=== PATIENT | female | born 1980 | race Caucasian/White ===

== ENCOUNTER 2019-12-21 08:48 | Inpatient (IN) | payer MEDICAID ==
[2019-12-21] VITALS (7 sets, daily range): BP systolic 162–216; BP diastolic 87–111; BMI 20.7
[~2019-12-21] VITALS: Ht 175.3 cm; Wt 55.8 kg
--- NOTE | 2019-12-21 09:10 | NUR ---
FSBS 265 AT THIS TIME.
[2019-12-21 09:29] LABS: ANION GAP 12.9 mmol/L (8-16); BASOPHILS 0.4 % (0-2); CALCIUM 8.9 mg/dL (8.5-10.1); CARBON DIOXIDE 27.6 mmol/L (21.0-32.0); CREATININE - SERUM 3.2 mg/dL (0.6-1.3); EOSINOPHILS 4.1 % (0-7); HEMATOCRIT 34.9 % (36.0-48.0); HEMOGLOBIN 10.9 g/dL (12-16); IMMATURE GRANULOCYTES 0.5 % (0-5); LYMPHOCYTES 8.3 % (15-50); MCH 27.2 pg (26.0-34.0); MCHC 31.2 g/dL (31.0-37.0); MEAN PLATELET VOLUME 10.4 fL (7.4-10.4); MONOCYTES 8.2 % (2-11); NEUTROPHILS 78.5 % (40-80); PLATELET COUNT 271 10x3/uL (130-400); POTASSIUM - SERUM 3.5 mmol/L (3.5-5.1); RBC 4.01 10x6/uL (4.00-5.40); RDW 15.1 % (11.5-14.5)
[2019-12-21 09:36] LABS: ALBUMIN 3.5 g/dL (3.4-5.0); BILIRUBIN - TOTAL 0.39 mg/dL (0.2-1.3); PROTEIN - SERUM 6.7 g/dL (6.4-8.2)
--- NOTE | 2019-12-21 11:43 | NUR ---
BLOOD SUGAR OBTAINED 269 MG/DL.
[2019-12-21] MEDS ORDERED: BACLOFEN10 MG PO (14:55)
[2019-12-21] MEDS ORDERED: SYNTHROID25 MCG PO (14:56)
[2019-12-21] MEDS ORDERED: METOPROLOL TARTRATE PO (14:59)
[2019-12-21] MEDS ORDERED: CATAPRES0.1 MG PO (15:00)
[2019-12-21] MEDS ORDERED: LISINOPRIL40 MG PO (15:01)
[2019-12-21] MEDS ORDERED: LANTUS INS100 UNITS/ SC (15:04)
[2019-12-21] MEDS ORDERED: HUMALOG 30100 UNITS/ SC (15:05)
[2019-12-21] MEDS ORDERED: ACETAMINOPHEN500 M1 PO (15:46)
[2019-12-21] MEDS ORDERED: HYDROCODON-ACE1 EA10 PO (15:47)
--- NOTE | 2019-12-21 16:04 | NUR ---
PT C/O OF PAIN IN HER LEFT ARM AV FISTULA. PT TAKES NORCO 10 Q6HP TOME. CALLED AND SPOKE WITH TRINH HALL AND SHE STATES TO RESTART NORCO. I VERBALIZED UNDERSTANDING.
--- NOTE | 2019-12-21 18:20 | NUR ---
PT C/O DIZZINESS. RECHECKED FSBS 214 COVERED WITH 4 UNITS. BP 192/95. CALLED AND SPOKE WITH TRINH HALL AND SHE STATES TO ORDER CLONIDINE 0.1MG Q6HP SBP >160. I VEBRALIZED UNDERSTANDING.
--- NOTE | 2019-12-21 18:40 | NUR ---
PRN CLONIDINE GIVEN AND RIGHT CHEST HEMOSPLIT DRESSING CHANGED USING STERILE TECHNIQUE.
--- NOTE | 2019-12-21 19:10 | NUR ---
PT SLEEPING. SHE AROUSES WITH VERBAL STIMULI, MUMBLES AND THEN FALLS BACK TO SLEEP. HER MOTHER IS AT HER BEDSIDE. SHE WROTE A LIST OF QUESTIONS FOR THE DOCTOR AND LEFT THEM ON THE PTS BEDSIDE TABLE. BED IS LOW AND CALL LIGHT IS WITHIN REACH.
[2019-12-22 00:32] VITALS: BP 149/84
[2019-12-22 04:09] LABS: BASOPHILS 0.8 % (0-2); EOSINOPHILS 5.3 % (0-7); HEMATOCRIT 33.5 % (36.0-48.0); HEMOGLOBIN 10.1 g/dL (12-16); IMMATURE GRANULOCYTES 0.5 % (0-5); LYMPHOCYTES 12.5 % (15-50); MCH 26.7 pg (26.0-34.0); MCHC 30.1 g/dL (31.0-37.0); MCV 88.6 fL (80.0-100.0); MEAN PLATELET VOLUME 9.9 fL (7.4-10.4); MONOCYTES 7.6 % (2-11); NEUTROPHILS 73.3 % (40-80); PLATELET COUNT 290 10x3/uL (130-400); RBC 3.78 10x6/uL (4.00-5.40); RDW 15.4 % (11.5-14.5); WBC 8.8 10x3/uL (4.8-10.8)
[2019-12-22 04:51] VITALS: BP 150/85
[2019-12-22 04:52] LABS: ALBUMIN 3.1 g/dL (3.4-5.0); ANION GAP 14.1 mmol/L (8-16); BILIRUBIN - TOTAL 0.39 mg/dL (0.2-1.3); CALCIUM 8.6 mg/dL (8.5-10.1); CARBON DIOXIDE 24.4 mmol/L (21.0-32.0); CREATININE - SERUM 3.8 mg/dL (0.6-1.3); POTASSIUM - SERUM 3.5 mmol/L (3.5-5.1); PROTEIN - SERUM 6.5 g/dL (6.4-8.2)
[2019-12-22 09:00] VITALS: BP 160/91
[2019-12-22 11:00] VITALS: BP 145/85
--- NOTE | 2019-12-22 12:34 | NUR ---
SITTING UP SOB EATING LUNCH. RIGHT CHEST HEMASPLI INTACT. LEFT ARM AVF NOTED. ERIKA NEEDS AT THIS TIME. CALL LIGHT IN REACH.
[2019-12-22 12:52] VITALS: Ht 175.3 cm; Wt 55.8 kg
[2019-12-22] MEDS ORDERED: PROCARDIA XL PO (14:51)
[2019-12-22] MEDS ORDERED: CYCLOBENZAPRINE5 MG PO (14:53)
[2019-12-22] MEDS ORDERED: KEFLEX250 MG PO (14:58)
[2019-12-22 15:00] VITALS: BP 144/75
--- NOTE | 2019-12-22 15:26 | NUR ---
RX FOR PROCARDIA 30 MG XL DID NOT E SCRIBE[facility]
--- NOTE | 2019-12-22 15:31 | NUR ---
DR. WATTS STATES TO ME THAT PT WILL NOT NEED F/U WITH PCP SHE WILL JUST F/U WITH MD IN DIALYSIS. I VERBALIZED UNDERSTANDING.
--- NOTE | 2019-12-22 16:45 | NUR ---
PT STATES TO ME SHE WANTS HER INSULIN IN HER RIGHT ARM TO GIVE HER LEFT ARM A BREAK. PT IS A LEFT ARM RESERVE. TEACHING DONE WITH PT ON WHAT A LEFT ARM RESERVE MEANS AND SHE IS NOT TO STICK, PUT INSULIN, CHECK BLOOD PRESSURES AT ALL IN THAT ARM. PT VERBALIZED UNDERSTANDING.
--- NOTE | 2019-12-22 17:05 | NUR ---
PT TAKEN TO DIALYSIS. PT TO D/C AFTER.
--- NOTE | 2019-12-22 17:40 | MORECARE ---
CASE MANAGEMENT DISCHARGE SUMMARY PATIENT: CHIARA SYLVESTER UNIT: [id number] ADM DATE: 12/21/19 AGE: 39 : 82 SEX: F ROOM/BED: D.1405 AUTHOR: RENETTA KAN PHYSICIAN: REFERRING PHYSICIAN: DENI WATTS DO DATE OF SERVICE: 12/22/19 Discharge Plan Patient Name: CHIARA SYLVESTER Facility: [facility]:[place] : 1980 Planned Disposition: Anticipated Discharge Date: Discharge Date: Expected LOS: Initial Reviewer: [email or web address] Initial Review Date: 12/21/2019 Generated: 12/22/19 6:39 pm Patient Name: CHIARA SYLVESTER Page [id number] at 1740 All edits/amendments must be made on the electronic document DICTATION DATE: 12/22/191738 CEPHALOMETRIC TRACER: GIAN 12/22/191738 RPT#: [id number] DC DATE: STATUS: ADM IN [facility] [address] [place] [address] END OF REPORT
--- NOTE | 2019-12-22 20:01 | NUR ---
COMPLETED DIALYSIS. IV D/C'D. OVERVIEWED DISCHARGE INSTRUCTIONWITH PT AND TOLD HER TO NEVER LET ANYONE TUCH HER ARM WITH FISTULA IN IT. ALSO, EDUCATED HER MOTHER. HAD ALL PERSONAL POSITIONS BAGGED AND TAKEN TO ER TO MEET HER MOTHER. HAD NO QUESTIONS CONCERNING DISCHARGE INSTRUCTIONS. LEFT IN FAMILY CAR.
--- NOTE | 2019-12-23 09:34 | MORECARE ---
CASE MANAGEMENT DISCHARGE SUMMARY PATIENT: CHIARA SYLVESTER UNIT: [id number] ADM DATE: 12/21/19 AGE: 39 : 82 SEX: F ROOM/BED: D.0702 AUTHOR: RENETTA KAN PHYSICIAN: REFERRING PHYSICIAN: DENI WATTS DO DATE OF SERVICE: 12/23/19 Discharge Plan Patient Name: CHIARA SYLVESTER [facility] [facility] 1980 Planned Disposition: Anticipated Discharge Date: Discharge Date: 12/22/2019 Expected LOS: Initial Reviewer: [email or web address] Initial Review Date: 12/21/2019 Generated: 12/23/19 10:33 am Last DP export: 12/22/19 4:40 p Patient Name: CHIARA SYLVESTER Page [id number] at 0934 All edits/amendments must be made on the electronic document DICTATION DATE: 12/23/19933 CLOTH SECONDS SORTER: GIAN 12/23/19933 RPT#: [id number] DC DATE:12/22/19 STATUS: DIS IN [facility] [address] [place] [address] END OF REPORT
== END 2019-12-22 20:04 | disposition home or self-care (01) | DRG 304 ==
LOC: D.ER 08:48 → D.EDHOLD 10:31 → D.M2 10:31
PROVIDERS: Family Medicine; ADMIT Internal Medicine; ATTEND Internal Medicine
PROC: 5A1D70Z Performance of Urinary Filtration, Intermittent, Less than 6 Hours Per Day (ICD-10-PCS; principal; 2019-12-21)
DX: I16.0 Hypertensive urgency (principal); N18.6 End stage renal disease; G93.41 Metabolic encephalopathy; E10.22 Type 1 diabetes mellitus with diabetic chronic kidney disease; I12.0 Hypertensive chronic kidney disease with stage 5 chronic kidney disease or end stage renal disease; E10.65 Type 1 diabetes mellitus with hyperglycemia

== ENCOUNTER 2020-06-17 07:00 | Day surgery (SDC) | payer MEDICAID ==
[~2020-06-17] VITALS: Ht 172.7 cm; Wt 59.0 kg
[~2020-06-17 07:00] MED LIST: ACETAMINOPHEN500 M1 PO; BACLOFEN10 MG PO; CATAPRES0.1 MG PO; CYANOCOBAL1000 MCG/4 SC; CYCLOBENZAPRINE5 MG PO; FUROSEMIDE40 MG PO; GABAPENTIN100 MG PO; HUMALOG 30100 UNITS/ SC; HYDRALAZINE HCL50 MG PO; HYDROCODON-ACE1 EA10 PO; KEFLEX250 MG PO; LANTUS INS100 UNITS/ SC; LISINOPRIL40 MG PO; METOPROLOL TARTRATE PO; PHENERGAN25 M1 PO; PROCARDIA XL PO; REGLAN10 MG PO; SYNTHROID25 MCG PO
[2020-06-17 07:51] VITALS: Ht 172.7 cm; Wt 59.0 kg
[2020-06-17 08:09] LABS: HCG URINE NEGATIVE (NEGATIVE)
[2020-06-17] MEDS ORDERED: BAYER CHEWABLE81 MG PO (08:10)
[2020-06-17] MEDS ORDERED: [UNRECOGNIZED DRUG - OTHER] (08:11)
[2020-06-17] MEDS ORDERED: INTEGRA CAPSUL1 EACH PO (08:11)
[2020-06-17] MEDS ORDERED: VITAMIN B-121000 MCG PO (08:12)
[2020-06-17 08:26] LABS: BASOPHILS 0.4 % (0-2); EOSINOPHILS 2.8 % (0-7); HEMATOCRIT 31.3 % (36.0-48.0); HEMOGLOBIN 9.9 g/dL (12-16); LYMPHOCYTE ABS# 0.84 10x3/uL (1.18-3.74); LYMPHOCYTES 9.1 % (15-50); MCH 28.2 pg (26.0-34.0); MCHC 31.6 g/dL (31.0-37.0); MCV 89.2 fL (80.0-100.0); MEAN PLATELET VOLUME 10.6 fL (7.4-10.4); MONOCYTES 8.7 % (2-11); NEUTROPHIL ABS# 7.22 10x3/uL (1.56-6.13); RBC 3.51 10x6/uL (4.00-5.40); RDW 16.4 % (11.5-14.5); WBC 9.3 10x3/uL (4.8-10.8)
[2020-06-17 08:28] LABS: PLATELET COUNT 377 10x3/uL (130-400)
[2020-06-17 08:31] LABS: ANION GAP 18.1 mmol/L (8-16); CALCIUM 8.9 mg/dL (8.5-10.1); CARBON DIOXIDE 26.1 mmol/L (21.0-32.0); CREATININE - SERUM 4.6 mg/dL (0.6-1.3); POTASSIUM - SERUM 4.2 mmol/L (3.5-5.1)
--- NOTE | 2020-06-17 15:07 | NUR ---
DISCHARGE INSTRUCTIONS REVIEWED WITH PATIENT, RIGHT WRIST PIV DC'D WITH TIP INTACT, PATIENT DRESSING IN PERSONAL CLOTHING. DISCHARGED HOME VIA WHEELCHAIR TO PRIVATE VEHICLE WITH MOTHER
--- NOTE | 2020-08-12 16:10 | OP ---
PATIENT NAME: CHIARA SYLVESTER MEDICAL RECORD: [id number] :82 LOCATION:D.OPS ADMISSION DATE: SURGEON: CHRIS RIDLEY MD DATE OF OPERATION: 06/17/2020 PREOPERATIVE DIAGNOSIS: Occluded right innominate vein. POSTOPERATIVE DIAGNOSIS: Occluded right innominate vein with inability to recanalize the right innominate vein. PROCEDURE: 1. Antegrade sheath placement left upper extremity arteriovenous fistula. 2. Nonselective fistulogram. 3. Selective inferior venacavogram. 4. Immediate surgeon interpretation of the fluoroscopic images. SURGEON: Dr. Ridley [employer]OP[employer] BUSINESS ANALYST: None. BLOOD LOSS: Minimal. ANESTHESIA: General. COMPLICATIONS: None. No radiologist was present. Static and cine images were obtained. These were placed in the PACS system. The surgeon interpretation of the radiographic images is dictated within the body of this operative note. OPERATIVE COURSE: The patient was conveyed to the operating room electively on 06/17/2020. General anesthesia was induced by the anesthesia staff. The left upper extremity was abducted at 90 degrees to the patient's trunk. Utilizing a micropuncture technique, I accessed the fistula. I changed the micropuncture catheter out for a 6-Malian sheath. Through the sheath, a fistulogram was performed. 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 An 0.035 Glidewire was advanced. Over 0.035 Glidewire, a number of different catheters including a VU catheter, angled diagnostic catheter and Quick-Cross catheters were utilized in order to try to traverse the occluded right innominate vein. A number of wires were used as well including a Lucas Glidewire and a Glidewire Advantage. Ultimately, I was unable to recanalize the right innominate vein. I would not recommend that we try to recanalize in the future. I felt that if I persisted, it could lead to an iatrogenic complication. Endovascular hardware was removed. A pursestring suture was applied at the sheath puncture site. Hemostasis was immediate. A sterile dressing was applied. The patient was then extubated and conveyed to post-anesthesia care unit where she was in stable condition. TRANSINT:[id number] Voice Confirmation ID: [id number] DOCUMENT ID: [id number] OPERATIVE REPORT [id number] CHIARA SYLVESTER ROBERT MD at 1610 CC: [id number] DICTATION DATE: 08/11/20 1610 V BELT INSPECTOR: 08/12/20 0002 [facility] [place] 06/17/20 [facility] [address] [place] [address]
== END 2020-06-17 15:07 | disposition home or self-care (01) ==
LOC: D.OPS 07:00
PROVIDERS: Anesthesiology; ATTEND Surgery
DX: N18.6 End stage renal disease (principal); I82.290 Acute embolism and thrombosis of other thoracic veins; I10 Essential (primary) hypertension; E03.9 Hypothyroidism, unspecified; E11.22 Type 2 diabetes mellitus with diabetic chronic kidney disease